=== PATIENT | male | born 1980 | race African-American/Black ===

== ENCOUNTER 2017-09-03 20:26 | Emergency (ER) | payer BC ==
[~2017-09-03] VITALS: Ht 175.3 cm; Wt 103.4 kg
[~2017-09-03 20:26] MED LIST: NKM; NORCO 7.5-3251 EACH ORAL; NORCO1 E1 ORAL
--- NOTE | 2017-09-03 21:04 | Emergency Room Report ---
History of Present Illness General Chief Complaint: Male Urogenital Problems Source: Patient Present Illness HPI Patient presents with reports of request for STD testing Patient reports that sexual partner told him that he likely should be tested for chlamydia Also asked regarding HIV test Patient had sexual intercourse on Thursday Denies any discharge or frequency denies any testicular pain denies any fevers or chills Denies any lymph node enlargement Allergies: Coded Allergies: No Known Allergies (Unverified , 09/23/14) Patient History Past Medical History: see triage record Pertinent Family History: none Reviewed Nursing Documentation: PMH: Agreed; PSxH: Agreed Nursing Documentation-PMH Past Medical History: No Stated History Review of Systems All Other Systems: negative except mentioned in HPI Physical Exam Vital Signs Date Time Temp Pulse Resp B/P (MAP) Pulse Ox O2 Delivery O2 Flow Rate FiO2 09/03/17 20:44 98.2 71 16 166/96 97 98.2 Sp02 EP Interpretation: reviewed, normal General Appearance: well appearing, no apparent distress Head: normocephalic, atraumatic Eyes: bilateral eye PERRL, bilateral eye EOMI ENT: hearing grossly normal, normal pharynx Neck: supple Respiratory: lungs clear Cardiovascular #1: regular rate, rhythm Gastrointestinal: non tender, soft Musculoskeletal: normal inspection Neurologic: oriented x3, responsive Skin: normal color, no rash Lymphatic: no adenopathy Medical Decision Making Diagnostic Impression: Primary Impression: Urethritis ER Course I did discuss with the patient regarding STD testing as this is best left to STD clinic for appropriate follow-up He is able to be treated however Patient reports that since he has no symptoms he does not want to be treated And will be following at a clinic He was however agreeable to having rapid HIV test which was negative. Labs Test 09/03/17 21:10 HIV (1&2) Antibody Rapid Negative (NEGATIVE) Last Vital Signs Date Time Temp Pulse Resp B/P (MAP) Pulse Ox O2 Delivery O2 Flow Rate FiO2 09/03/17 20:44 98.2 71 16 166/96 97 98.2 Status: improved Disposition: HOME, SELF-CARE Condition: Improved Additional Instructions: Patient is provided with the discharge instructions notified to follow up with primary doctor in the next 2-3 days otherwise return to the er with any worsening symptoms. Please note that this report is being documented using ChaCha technology. This can lead to erroneous entry secondary to incorrect interpretation by the dictating instrument. Cely Batista DO September 03, 2017 21:04
[2017-09-03 22:20] VITALS: BP 166/96
== END 2017-09-03 22:20 | disposition home or self-care (01) ==
LOC: EMR 21:14
DX: N34.2 Other urethritis (principal)
CPT/HCPCS: 86703; 99282

== ENCOUNTER 2018-05-17 23:12 | Emergency (ER) | payer BC ==
[~2018-05-17] VITALS: Ht 175.3 cm; Wt 108.9 kg
--- NOTE | 2018-05-17 23:30 | NUR ---
ED Nurse Note: Patient walk in c/o nose injury 1x hour ago. Patient states he hit in the nose by an elbow while playing basketball. AO4. NAD. Reports pain 510.
[2018-05-18] MEDS ORDERED: HYDROcodone/Acetamin 5/325 tab ORAL ONE
--- NOTE | 2018-05-18 00:04 | Emergency Room Report ---
History of Present Illness General Chief Complaint: Pain Source: Patient Present Illness HPI Is a 38-year-old male with no past medical history. He presents with chief complaint of nasal injury. He was elbowed in the nose just prior to arrival. There is some deformity and swelling to the left side. Pain is 7 out of 10. Worse with palpation. No loss of consciousness. No bleeding. No other complaint. Allergies: Coded Allergies: No Known Allergies (Unverified , 09/23/14) Patient History Past Medical History: see triage record, old chart reviewed Past Surgical History: none Pertinent Family History: none Social History: Denies: smoking Immunizations: other Reviewed Nursing Documentation: PMH: Agreed; PSxH: Agreed Nursing Documentation-PMH Past Medical History: No Stated History Review of Systems Eye: Denies: eye pain, blurred vision ENT: Reports: nose pain; Denies: ear pain, nose congestion, throat swelling Respiratory: Denies: cough, shortness of breath Cardiovascular: Denies: chest pain, palpitations Gastrointestinal: Denies: abdominal pain, diarrhea, nausea, vomiting Musculoskeletal: Denies: back pain, joint pain Skin: Denies: rash Neurological: Denies: headache, numbness Endocrine: Denies: increased thirst, increased urine Hematologic/Lymphatic: Denies: easy bruising All Other Systems: negative except mentioned in HPI Physical Exam Vital Signs Date Time Temp Pulse Resp B/P (MAP) Pulse Ox O2 Delivery O2 Flow Rate FiO2 05/17/18 23:26 98.2 59 16 161/97 99 Room Air vitals with high blood pressure Sp02 EP Interpretation: reviewed, normal General Appearance: well appearing, no apparent distress, alert Head: normocephalic, atraumatic Eyes: bilateral eye PERRL, bilateral eye EOMI ENT: hearing grossly normal, normal pharynx, other - Nose: There is edema to the left side the nose with deviation to the right. No septal hematoma. No bleeding. Neck: full range of motion, supple, no meningismus Respiratory: chest non-tender, lungs clear, normal breath sounds Cardiovascular #1: regular rate, rhythm, no murmur Gastrointestinal: normal bowel sounds, non tender, no mass, no organomegaly, no bruit, non-distended Musculoskeletal: back normal, gait/station normal, normal range of motion Psychiatric: mood/affect normal Skin: warm/dry Medical Decision Making Diagnostic Impression: Primary Impression: Nasal bones, closed fracture Qualified Codes: S02.2XXA - Fracture of nasal bones, initial encounter for closed fracture ER Course Patient presents with a nasal bone fracture. No septal hematoma or bleeding. We'll discharge home with referral to ENT and plastic surgeon. Other X-Ray Diagnostic Results Other X-Ray Diagnostic Results : X-Ray ordered: Nasal bone x-rays # of Views/Limited Vs Complete: 3 View Indication: Pain EP Interpretation: Yes Interpretation: no dislocation, no soft tissue swelling, other - nasal bone frx. Impression: Other - nasal bone frx Electronically Signed by: Javi Davalos MD Last Vital Signs Date Time Temp Pulse Resp B/P (MAP) Pulse Ox O2 Delivery O2 Flow Rate FiO2 05/17/18 23:26 98.2 59 16 161/97 99 Room Air Status: improved Disposition: HOME, SELF-CARE Condition: Stable Scripts Ibuprofen* (MOTRIN*) 600 Mg Tablet 600 MG ORAL THREE TIMES A DAY, #30 TAB 0 Refills Prov: Javi Davalos MD 05/18/18 Hydrocodone/Acetaminophen 5-325* (HYDROCODONE/ACETAMINOPHEN 5-325*) 1 Each Tablet 1 TAB ORAL Q6H PRN for For Pain, #15 TAB 0 Refills Prov: Javi Davalos MD 05/18/18 Referrals: NOT CHOSEN [facility]/,REFERRING (PCP) Additional Instructions: Follow-up with your DrRomie in 7 days. Ice pack to the area. Return if symptom worsen. Javi Davalos MD May 18, 2018 00:04
--- NOTE | 2018-05-18 00:05 | NUR ---
ED Nurse Note: Pt down to imaging
--- NOTE | 2018-05-18 00:20 | NUR ---
ED Nurse Note: pt back from imaging
[2018-05-18] MEDS ORDERED: HYDROCODON-ACE1 EA15 ORAL (00:24)
[2018-05-18] MEDS ORDERED: IBUPROFEN600 MG ORAL (00:24)
--- NOTE | 2018-05-18 00:30 | NUR ---
ED Nurse Note: Patient cleared for discharge per ERMD. AO4. NAD. VSS. Accompanied by family member. Parent given prescriptions and discharge instructions; verbalized understanding. ID band removed. Patient ambulated out with all personal belongings with steady gait.
[2018-05-18 00:35] VITALS: BP 161/97
--- NOTE | 2018-05-18 10:45 | Diagnostic Imaging Report ---
Indication: Trauma, pain Technique: 3 views of the nasal bones Comparison: none Findings: There is a depressed fracture of the nasal bone demonstrated. No worrisome sinus opacification. The nasal septum appears to be midline. Impression: Positive for nasal fracture positive for nasal bone fracture This agrees with the interpretation described by the emergency room physician in the electronic medical record
== END 2018-05-18 00:30 | disposition home or self-care (01) ==
LOC: EMR 23:35
DX: S02.2XXA Fracture of nasal bones, initial encounter for closed fracture (principal); W51.XXXA Accidental striking against or bumped into by another person, initial encounter; Y93.67 Activity, basketball; Y92.89 Other specified places as the place of occurrence of the external cause
CPT/HCPCS: 70160; 99283